=== PATIENT | female | born 1985 | race Caucasian/White ===

== ENCOUNTER → 2018-09-01 | Outpatient (CLI) | payer OTHER ==
[~2018-09-01] MED LIST: AMOX500 PO; ASPI81CH PO; IBUP400 PO; OXYACE5T PO; PRED20 PO; PRENATAL TABLE1 EAC1 PO; SERT50 PO
== END | disposition home or self-care (01) ==
LOC: LAB 14:11 → LAB SHORT 14:11
DX: Z34.80 Encounter for supervision of other normal pregnancy, unspecified trimester (principal)
CPT/HCPCS: 87081; 87653

== ENCOUNTER 2018-09-23 06:57 | Inpatient (IN) | payer OTHER ==
[~2018-09-23] VITALS: Ht 167.6 cm; Wt 103.4 kg
[~2018-09-23 06:57] MED LIST changes: -ASPI81CH PO; -IBUP400 PO; -PRENATAL TABLE1 EAC1 PO; -SERT50 PO
[2018-09-23] MEDS ORDERED: SERT50 PO (07:45)
[2018-09-23] MEDS ORDERED: ASPI81CH PO (07:45)
[2018-09-23] MEDS ORDERED: PRENATAL TABLE1 EAC1 PO (07:46)
[2018-09-23 08:02] LABS: BASOPHILS ABSOLUTE AUTO 0.04 K/mm3 (0.00-0.23); BASOPHILS PERCENT AUTO 0 % (0-2); EOSINOPHILS ABSOLUTE AUTO 0.14 K/mm3 (0.00-0.68); EOSINOPHILS PERCENT AUTO 1 % (0-6); Hematocrit 34.5 % (33.0-51.0); Hemoglobin 11.5 g/dL (11.5-16.0); IMMATURE GRAN ABSOLUTE AUTO 0.04 K/mm3 (0.00-0.10); IMMATURE GRAN PERCENT AUTO 0 % (0-1); LYMPHOCYTES ABSOLUTE AUTO 1.78 K/mm3 (0.84-5.20); LYMPHOCYTES PERCENT AUTO 18 % (21-46); MONOCYTES ABSOLUTE AUTO 0.43 K/mm3 (0.16-1.47); MONOCYTES PERCENT AUTO 4 % (4-13); Mean Corpuscular HGB 31.1 pg (26.0-34.0); Mean Corpuscular HGB Conc 33.3 g/dL (31.5-36.5); Mean Corpuscular Volume 93 fL (80-100); Mean Platelet Volume 10.4 fL (9.1-12.4); NEUTROPHILS ABSOLUTE AUTO 7.46 K/mm3 (1.96-9.15); NEUTROPHILS PERCENT AUTO 76 % (41-73); Platelet Count 263 K/mm3 (150-400); RDW Standard Deviation 44.1 fL (35.1-46.3); White Blood Cell Count 9.89 K/mm3 (4.00-11.30)
--- NOTE | 2018-09-23 15:15 | NUR ---
pt ambulated well to bathroom, voided on toilet and then took a quick shower, pt did turn a pale saucedo color in shower, no dizzyness no lightheaded ness, no ringing in her ears. got pt back to bed and with in 60 sec of laying down pt face was back to pink. pt was a little nauseaed getting up
[2018-09-23 19:47] LABS: Hematocrit 30.4 % (33.0-51.0); Hemoglobin 9.9 g/dL (11.5-16.0); Mean Corpuscular HGB 30.6 pg (26.0-34.0); Mean Corpuscular HGB Conc 32.6 g/dL (31.5-36.5); Mean Corpuscular Volume 94 fL (80-100); Platelet Count 258 K/mm3 (150-400); RDW Coefficient Variation 13.1 % (11.7-14.2); Red Blood Cell Count 3.24 M/mm3 (3.80-5.20); White Blood Cell Count 13.74 K/mm3 (4.00-11.30)
[2018-09-24 05:30] LABS: Hemoglobin 8.4 g/dL (11.5-16.0); Mean Corpuscular HGB 30.4 pg (26.0-34.0); Mean Corpuscular HGB Conc 32.3 g/dL (31.5-36.5); Mean Corpuscular Volume 94 fL (80-100); Mean Platelet Volume 9.9 fL (9.1-12.4); Platelet Count 214 K/mm3 (150-400); RDW Coefficient Variation 13.2 % (11.7-14.2); RDW Standard Deviation 45.3 fL (35.1-46.3); Red Blood Cell Count 2.76 M/mm3 (3.80-5.20); White Blood Cell Count 10.97 K/mm3 (4.00-11.30)
[2018-09-24] MEDS ORDERED: IBUP400 PO (12:51)
--- NOTE | 2018-09-24 14:45 | NUR ---
D/C HOME AMBULATING WITHOUT DIFFICULTY WITH AND NB.
== END 2018-09-24 14:45 | disposition home or self-care (01) | DRG 806 ==
LOC: BC 06:57
PROVIDERS: ADMIT Advanced Practice Midwife
PROC: 10E0XZZ Delivery of Products of Conception, External Approach (ICD-10-PCS; principal; 2018-09-23)
PROC: 3E0R3BZ Introduction of Anesthetic Agent into Spinal Canal, Percutaneous Approach (ICD-10-PCS; 2018-09-23)
PROC: 10907ZC Drainage of Amniotic Fluid, Therapeutic from Products of Conception, Via Natural or Artificial Opening (ICD-10-PCS; 2018-09-23)
DX: O77.0 Labor and delivery complicated by meconium in amniotic fluid (principal); O72.1 Other immediate postpartum hemorrhage; Z37.0 Single live birth; O10.92 Unspecified pre-existing hypertension complicating childbirth; Z3A.39 39 weeks gestation of pregnancy; O76 Abnormality in fetal heart rate and rhythm complicating labor and delivery; O26.53 Maternal hypotension syndrome, third trimester
CPT/HCPCS: 36415; 51702; 85025; 85027; J0694; J1885; J2001; J2210; J2590; J3010; J7120

== ENCOUNTER 2019-01-12 06:31 | Day surgery (SDC) | payer OTHER ==
[~2019-01-12] VITALS: Ht 167.6 cm; Wt 92.6 kg
[~2019-01-12 06:31] MED LIST changes: +ASPI81CH PO; +IBUP400 PO; +ONDA4ODT MM; +PRENATAL TABLE1 EAC1 PO; +SERT50 PO
--- NOTE | 2019-01-12 07:22 | NUR ---
Ambulatory in Day Surgery History, Chart, Medications and Allergies reviewed before start of procedure.Lungs clear T/O to Auscultation. Patient confirms NPO status and agrees with scheduled surgery.
--- NOTE | 2019-01-12 11:26 | NUR ---
IN STEP DOWN. PAIN AT TOLERABLE LEVEL. 4 DRSGS CD&I. TOLERATING PO JUICE AND CRACKERS. PO PAIN MEDICATION GIVEN FOR 4/10 ABDOMINAL PAIN. D/C INSTRUCTIONS GIVEN TO PATIENT AND WITH STATED UNDERSTANDING.
--- NOTE | 2019-01-13 12:03 | NUR ---
01/13/19 1203 Taylor Lockwood VERIFICATIONS: EDIT CHART.
== END 2019-01-12 11:50 | disposition home or self-care (01) ==
LOC: ORSCMMR 06:31 → ORD 12:45 → ORSCMMR 12:45
PROVIDERS: Surgery
PROC: BF031ZZ Plain Radiography of Gallbladder and Bile Ducts using Low Osmolar Contrast (ICD-10-PCS; principal; 2019-01-12 08:00)
PROC: 0FT44ZZ Resection of Gallbladder, Percutaneous Endoscopic Approach (ICD-10-PCS; principal; 2019-01-12 08:00)
DX: K80.20 Calculus of gallbladder without cholecystitis without obstruction (principal); F41.8 Other specified anxiety disorders; Z87.891 Personal history of nicotine dependence; E66.9 Obesity, unspecified; Z68.33 Body mass index [BMI] 33.0-33.9, adult
CPT/HCPCS: 74300; 88304; A9270-GY; C1894; J0694; J1100; J2250; J2370; J2405; J2704; J2710; J3010; J7120

== ENCOUNTER → 2021-03-12 | Outpatient (CLI) | payer OTHER ==
[2021-03-12 13:43] LABS: Source, Urine Clean Catch
[2021-03-12 14:28] LABS: Bacteria Rare /hpf; Red Blood Cells, Urine 0-2 /hpf (0-2); Squamous Epithelial Cells Rare /hpf (Few); White Blood Cells, Urine 0-2 /hpf (0-5)
== END | disposition home or self-care (01) ==
LOC: LAB SHORT 09:30
PROVIDERS: Obstetrics & Gynecology
DX: Z34.81 Encounter for supervision of other normal pregnancy, first trimester (principal)
CPT/HCPCS: 81015; 87086

== ENCOUNTER → 2021-09-17 | Outpatient (CLI) | payer OTHER | END | disposition home or self-care (01) | LOC: LAB 08:57 → LAB SHORT 08:57 | DX: O09.93 Supervision of high risk pregnancy, unspecified, third trimester (principal) | CPT/HCPCS: 87081; 87150 ==

== ENCOUNTER 2021-10-08 05:06 | Inpatient (IN) | payer OTHER ==
[~2021-10-08] VITALS: Ht 167.6 cm; Wt 95.7 kg
[2021-10-08 07:13] LABS: BASOPHILS ABSOLUTE AUTO 0.04 K/mm3 (0.00-0.23); BASOPHILS PERCENT AUTO 1 % (0-2); EOSINOPHILS PERCENT AUTO 2 % (0-6); Hematocrit 34.7 % (33.0-51.0); Hemoglobin 11.7 g/dL (11.5-16.0); IMMATURE GRAN ABSOLUTE AUTO 0.06 K/mm3 (0.00-0.10); IMMATURE GRAN PERCENT AUTO 1 % (0-1); LYMPHOCYTES ABSOLUTE AUTO 2.25 K/mm3 (0.84-5.20); LYMPHOCYTES PERCENT AUTO 26 % (21-46); MONOCYTES ABSOLUTE AUTO 0.51 K/mm3 (0.16-1.47); MONOCYTES PERCENT AUTO 6 % (4-13); Mean Corpuscular HGB 31.6 pg (26.0-34.0); Mean Corpuscular HGB Conc 33.7 g/dL (31.5-36.5); Mean Corpuscular Volume 94 fL (80-100); Mean Platelet Volume 10.2 fL (9.1-12.4); NEUTROPHILS ABSOLUTE AUTO 5.63 K/mm3 (1.96-9.15); NEUTROPHILS PERCENT AUTO 65 % (41-73); Platelet Count 261 K/mm3 (150-400); RDW Coefficient Variation 12.8 % (11.7-14.2); RDW Standard Deviation 43.8 fL (35.1-46.3); White Blood Cell Count 8.69 K/mm3 (4.00-11.30)
--- NOTE | 2021-10-09 10:27 | NUR ---
Pt. is awake in bed and welcomes my visit. Spouse is present and is holding the in the recliner. Pt. and spouse are pleasant. Baby is soundly sleeping. Re-establish rapport as the family is known to this director corporate. Prayed a blessing over the baby, the parents and the family. Both Pt. and spouse verbalize gratitude for the spiritual care visit.
[2021-10-09] MEDS ORDERED: IBUP800 PO (12:58)
== END 2021-10-09 18:55 | disposition home or self-care (01) | DRG 807 ==
LOC: OBS 05:06 → BC 05:15
PROVIDERS: ADMIT Obstetrics & Gynecology
PROC: 10E0XZZ Delivery of Products of Conception, External Approach (ICD-10-PCS; principal; 2021-10-08)
PROC: 3E0R3BZ Introduction of Anesthetic Agent into Spinal Canal, Percutaneous Approach (ICD-10-PCS; 2021-10-08)
PROC: 00HU33Z Insertion of Infusion Device into Spinal Canal, Percutaneous Approach (ICD-10-PCS; 2021-10-08)
PROC: 10907ZC Drainage of Amniotic Fluid, Therapeutic from Products of Conception, Via Natural or Artificial Opening (ICD-10-PCS; 2021-10-08)
DX: O99.824 Streptococcus B carrier state complicating childbirth (principal); Z37.0 Single live birth; O36.63X0 Maternal care for excessive fetal growth, third trimester, not applicable or unspecified; O69.1XX0 Labor and delivery complicated by cord around neck, with compression, not applicable or unspecified; O76 Abnormality in fetal heart rate and rhythm complicating labor and delivery; O09.523 Supervision of elderly multigravida, third trimester; Z98.890 Other specified postprocedural states; Z90.49 Acquired absence of other specified parts of digestive tract; Z79.899 Other long term (current) drug therapy; Z87.19 Personal history of other diseases of the digestive system; Z86.59 Personal history of other mental and behavioral disorders; Z87.59 Personal history of other complications of pregnancy, childbirth and the puerperium; Z3A.39 39 weeks gestation of pregnancy
CPT/HCPCS: 36415; 51702; 85025; 86850; 86900; 86901; A9270; J0290; J1885; J2001; J2210; J2405; J2590; J3010; J7120

== ENCOUNTER 2021-10-11 19:30 | Emergency (ER) | payer OTHER ==
[~2021-10-11] VITALS: Ht 167.6 cm; Wt 104.3 kg
[~2021-10-11 19:30] MED LIST changes: +IBUP800 PO
[2021-10-11 20:01] LABS: BASOPHILS ABSOLUTE AUTO 0.07 K/mm3 (0.00-0.23); BASOPHILS PERCENT AUTO 1 % (0-2); EOSINOPHILS ABSOLUTE AUTO 0.44 K/mm3 (0.00-0.68); EOSINOPHILS PERCENT AUTO 6 % (0-6); Hematocrit 31.6 % (33.0-51.0); Hemoglobin 10.7 g/dL (11.5-16.0); IMMATURE GRAN ABSOLUTE AUTO 0.04 K/mm3 (0.00-0.10); IMMATURE GRAN PERCENT AUTO 1 % (0-1); LYMPHOCYTES ABSOLUTE AUTO 3.23 K/mm3 (0.84-5.20); LYMPHOCYTES PERCENT AUTO 42 % (21-46); MONOCYTES ABSOLUTE AUTO 0.48 K/mm3 (0.16-1.47); MONOCYTES PERCENT AUTO 6 % (4-13); Mean Corpuscular HGB 32.3 pg (26.0-34.0); Mean Corpuscular HGB Conc 33.9 g/dL (31.5-36.5); Mean Corpuscular Volume 96 fL (80-100); Mean Platelet Volume 9.5 fL (9.1-12.4); NEUTROPHILS ABSOLUTE AUTO 3.53 K/mm3 (1.96-9.15); NEUTROPHILS PERCENT AUTO 45 % (41-73); Platelet Count 272 K/mm3 (150-400); RDW Coefficient Variation 12.9 % (11.7-14.2); RDW Standard Deviation 44.9 fL (35.1-46.3); Red Blood Cell Count 3.31 M/mm3 (3.80-5.20); White Blood Cell Count 7.79 K/mm3 (4.00-11.30)
[2021-10-11 20:14] LABS: Albumin, Blood 2.7 g/dL (3.4-5.0); Albumin/Globulin Ratio 0.8 (0.8-1.8); Bilirubin, Total 0.1 mg/dL (0.1-1.0); Bun/Creatinine Ratio 23.6 (12.0-20.0); Creatinine, Blood 0.55 mg/dL (0.40-1.00); Globulin, Blood 3.4 g/dL (2.2-4.0); Potassium, Blood 3.7 mmol/L (3.5-5.5); Total Protein, Blood 6.1 g/dL (6.4-8.2)
[2021-10-11] MEDS ORDERED: IBU800 M1 PO (20:48)
[2021-10-11] MEDS ORDERED: OXYC5 (20:48)
== END 2021-10-11 21:04 | disposition home or self-care (01) ==
LOC: ER 19:30
PROVIDERS: Physician Assistant
DX: O90.89 Other complications of the puerperium, not elsewhere classified (principal); R10.31 Right lower quadrant pain; Z79.899 Other long term (current) drug therapy
CPT/HCPCS: 36415; 80053; 85025

== ENCOUNTER → 2023-02-12 | Outpatient (CLI) | payer OTHER ==
[~2023-02-12] MED LIST changes: +IBU800 M1 PO; +OXYC5
== END ==
LOC: LAB SHORT 08:16 → PLD 08:16
DX: D48.5 Neoplasm of uncertain behavior of skin (principal)
CPT/HCPCS: 88305

== ENCOUNTER → 2023-09-01 | Outpatient (CLI) | payer OTHER ==
[2023-09-04 14:11] LABS: HPV HIGH RISK BY TMA Not Detected; HPV SOURCE Cervical
== END ==
LOC: LAB 09:19 → LAB SHORT 09:19
PROVIDERS: Obstetrics & Gynecology
DX: Z01.419 Encounter for gynecological examination (general) (routine) without abnormal findings (principal)
CPT/HCPCS: 87624; G0123